=== PATIENT | male | born 1985 | race Caucasian/White ===

== ENCOUNTER 2021-09-24 02:13 | Outpatient (CLI) | payer MEDICAID, SELFPAY ==
--- NOTE | 2021-09-24 | DI.MRI_ITS ---
Exam(s) MR LUMBAR SPINE WO EXAM: MR LUMBAR SPINE WO CLINICAL HISTORY: LT HIP PAIN,LUMBAGO,SCIATICA,RADICULOPATHY,M54.16,M54.42. TECHNIQUE: Multiplanar multisequence MRI of the Lumbar spine was performed. COMPARISON: No exams were available for comparison FINDINGS: The examination is limited due to patient motion artifact. Bones: The last intervertebral disc space is designated the L5/S1 level for the numbering purpose of this examination. The vertebral body heights are well maintained. Alignment is satisfactory. The si gnal characteristics are unremarkable. Cord: The conus tip ends at the T12-L1 level. It is of normal size and signal intensity. T12-L1: No disc herniations or bulges are present. No central spinal canal or neural foraminal stenos is. L1-2: No disc herniations or bulges are present. No central spinal canal or neural foraminal stenosis . L2-3: No disc herniations or bulges are present. No central spinal canal or neural foraminal stenosis . L3-4: No disc herniations or bulges are present. No central spinal canal or neural foraminal stenosis . L4-5: There is a diffuse disc bulge and left lateral disc herniation. There is extrusion of the disc posterior to the L4 vertebral body. It causes left lateral recess stenosis and compresses the left L4 nerve root. There is no central spinal canal stenosis. There is moderately severe left neural fo raminal stenosis. No right neural foraminal stenosis. L5-S1: No disc herniations or bulges are present. No central spinal canal or neural foraminal stenosi s. Soft tissues: The visualized SI joints and sacrum are well maintained. The paraspinal soft tissues ar e unremarkable. Visualized abdominal organs: Unremarkable. IMPRESSION: There is a left paracentral disc herniation at L4-L5 with extrusion posterior to the L4 vertebral bod y. It causes left lateral recess stenosis and compresses the left L4 nerve root. DATA REPOSITORY:
--- NOTE | 2021-09-24 | DI.RAD_ITS ---
Exam(s) XR HIP LT COMPLETE AP PELVIS EXAM: XR HIP LT COMPLETE AP PELVIS CLINICAL HISTORY: LT HIP PAIN,LUMBAGO, RADICULOPATHY,M25.552. TECHNIQUE: 2D digital imaging was performed of the left hip. Two views were obtained. AP pelvis an d lateral left hip views were obtained. COMPARISON: No exams were available for comparison FINDINGS: BONES: No acute fracture is present. No bony destructive lesion is seen. JOINTS: No dislocation present. SOFT TISSUE: Normal. IMPRESSION: Unremarkable radiographs of the left hip. Unremarkable radiographs of the pelvis DATA REPOSITORY: RADIATION DOSE DELIVERED:
--- NOTE | 2021-09-24 14:50 | DI.RAD_ITS ---
Exam(s) XR EYE FOREIGN BODY EXAM: XR EYE FOREIGN BODY INDICATION: PRE MRI CLEARANCE, H/O METAL TO EYE. COMPARISON: No exams were available for comparison TECHNIQUE: 2D digital imaging was performed. FINDINGS: No radiopaque foreign bodies are seen in the orbits. IMPRESSION: DATA REPOSITORY: RADIATION DOSE DELIVERED:
== END 2021-09-24 02:33 ==
PROVIDERS: PCP Physician Assistant; Visit Provider Physician Assistant
DX: M25.552 Pain in left hip (principal); M51.16 Intervertebral disc disorders with radiculopathy, lumbar region; Z18.89 Other specified retained foreign body fragments
CPT/HCPCS: 70030; 72148; 73502

== ENCOUNTER 2021-09-29 18:06 | Outpatient (REF) | payer MEDICAID, SELFPAY ==
[2021-09-29 20:29] LABS: ESR 10 mm/hr (0-15)
[2021-09-29 21:28] LABS: C-Reactive Protein 0.15 mg/dL (0.0-0.3)
[2021-09-30 16:18] LABS: Rheumatoid Factor <8.6 IU/mL (<12.0)
[2021-10-01 10:18] LABS: Lyme Ab w Rflx to Lyme Confirm Negative (Negative)
[2021-10-01 10:59] LABS: Cyclic Citrullinated Peptide <2.5 U/mL (<5.0)
[2021-10-01 22:34] LABS: Anaplasma phagocytophilum Negative (Negative); B. miyamotoi PCR Negative (Negative); Babesia divergens/MO-1 Negative (Negative); Babesia duncani Negative (Negative); Babesia microti Negative (Negative); Ehrlichia chaffeensis Negative (Negative); Ehrlichia ewingii/canis Negative (Negative); Ehrlichia muris eauclairensis Negative (Negative)
== END 2021-09-29 18:07 | disposition home or self-care (01) ==
LOC: NCHCN 18:06
PROVIDERS: PCP Physician Assistant; Visit Provider Physician Assistant
DX: M25.59 Pain in other specified joint (principal)
CPT/HCPCS: 85652; 86200; 87798; 86140; 86431; 86618

== ENCOUNTER 2023-10-28 12:44 | Emergency (ER) | payer MEDICAID, SELFPAY ==
[2023-10-28 12:49] VITALS: BP 118/96; PULSE 99; RESP 15; TEMP 36.7; O2SAT 99
--- NOTE | 2023-10-28 13:17 | ED.GENADUL_ITS ---
Discharge Plan Disposition Patient Disposition: Home Condition: Improving Discharge Details Clinical Impression: Peritonsillar abscess Primary Care Provider: Richi Arciniega ED Provider: Calderon Beck Home Meds and New Rx's Prescriptions: New amoxicillin-pot clavulanate 875-125 mg tablet 1 tab PO BID 7 Days Qty: 14 0RF No Action buprenorphine-naloxone [Suboxone] 8-2 mg film 2 film sublingual DAILY Patient Comments: Reports taking another 2mg film if needed Rx Instructions: place 1 strip/tab under (each) side of tongue Discharge Instructions Instructions: Peritonsillar Abscess (ED) Additional Instructions: Please follow-up closely with your primary care physician. Return to the emergency department for any worsening symptoms. HPI General Date/Time Provider Initiated Documentation: 10/28/23 12:54 . HPI Narrative: 38-year-old male presents with painful sore throat over the last several days, felt spontaneous drainage of fluid on the back of his throat and a foul taste. Has been taking his friend's amoxicillin over the last 2 days. Related Data Home Medications Medication Instructions Recorded Confirmed amoxicillin 875 mg-potassium 1 tab PO BID 7 days #14 tabs 10/28/23 clavulanate 125 mg tablet buprenorphine 8 mg-naloxone 2 mg 2 film sublingual DAILY 10/28/23 10/28/23 sublingual film (Suboxone) Previous Rx's Medication Instructions Recorded amoxicillin 875 mg-potassium 1 tab PO BID 7 days #14 tabs 10/28/23 clavulanate 125 mg tablet Allergies Allergy/AdvReac Type Severity Reaction Status Date / Time No Known Allergies Allergy Unverified 10/28/23 12:54 General Stated Complaint: RashLesion SHANE: 3 Review of Systems Narrative: Review of Systems Constitutional: negative Eyes: negative ENT: Sore throat Cardiovascular: negative Respiratory: negative Gastrointestinal: negative : negative Musculoskeletal: negative Skin: negative Neurologic: negative Psych: negative Exam Narrative Exam Narrative: Physical Examination General: alert, awake, cooperative, resting comfortably, no acute distress HEENT: normocephalic, atraumatic; PERRL, EOM intact, conjunctiva normal; no nasal discharge; moist mucous membranes, peritonsillar edema right tonsil greater than left, midline uvula, tolerating secretions normal voice no stridor Neck: supple, trachea midline; full ROM Chest: normal to inspection Respiratory: normal respiratory effort, speaking in full sentences Skin: no lesions, rashes or trauma appreciated Neuro: AAOx3, normal speech, moving all extremities Course Vital Signs Vital signs: Vital Signs Temperature 36.7 C 10/28/23 12:49 Pulse 99 H 10/28/23 12:49 Respiratory Rate 15 10/28/23 12:49 Blood Pressure 118/96 H 10/28/23 12:49 Pulse Oximetry 99 10/28/23 12:49 Temperature 36.7 C 10/28/23 12:49 Temperature Source Temporal Artery Scan 10/28/23 12:49 Pulse 99 H 10/28/23 12:49 Respiratory Rate 15 10/28/23 12:49 Respiratory Effort Normal 10/28/23 12:53 Blood Pressure 118/96 H 10/28/23 12:49 Blood Pressure Position Sitting 10/28/23 12:49 Pulse Oximetry 99 10/28/23 12:49 Oxygen Delivery Method Room Air 10/28/23 12:49 Oxygen Flow Rate 0 10/28/23 12:49 Pain Level 5 10/28/23 12:49 Medical Decision Making 38-year-old male presents with sore throat over the last several days, foul tasting drainage on the back of his throat today, evidence of likely right peritonsillar abscess that is spontaneously draining, midline uvula tolerating secretions normal voice, afebrile nontoxic borderline tachycardic on arrival, patient has been taking a friend's amoxicillin over the last 2 days. No evidence of airway compromise, soft submandibular and submental space low suspicion for retropharyngeal abscess or Gerald's angina. Will administer antibiotics, anti-inflammatory analgesia fluids will obtain basic labs. Patient had great improvement of symptomatology after spontaneous rupture of peritonsillar abscess, at this time given resolution of symptoms and no evidence of airway compromise will hold further I&D. If patient continues to improve after antibiotics and anti-inflammatory consider home with close follow-up 14: 28 patient feeling much better resting comfortably no acute distress. No respiratory distress. Tolerating secretions normal voice. Will transition to Augmentin. Home care instructions and strict return precautions Quality:SDOH Health Related Social Needs: No Data to Display PFSH All Active Problems (Updated 10/28/23 @ 14:25 by Calderon Beck MD) Peritonsillar abscess (Acute) Social History Smoking/Tobacco Use Status: Current every day Tobacco Type: cigarettes Smoking risk assessment performed?: Yes Alcohol Intake: never Drug use: Never Substance use type: does not use
[2023-10-28] MEDS: Normal Saline 1,000 ML 1000 ML IV (13:28)
[2023-10-28] MEDS: AMPICILLIN/SULBACTAM 3 GM in Normal Saline 100 ML IVPB (13:29)
[2023-10-28] MEDS: Dexamethasone 10 MG/ML VIAL IVP (13:31)
[2023-10-28] MEDS: Ketorolac 15 MG/ML VIAL IVP (13:31)
[2023-10-28 13:42] LABS: Abs Immature Grans 0.03 10^3/uL (0.0-0.06); Absolute Basophil Count 0.04 10^3/uL (0.0-0.2); Absolute Eosinophil Count 0.14 10^3/uL (0.0-0.7); Absolute Lymphocyte Count 2.24 10^3/uL (1.2-3.4); Absolute Monocyte Count 0.98 10^3/uL (0.1-0.8); Absolute Neutrophil Count 5.64 10^3/uL (1.2-6.7); Basophils % 0.4; Eosinophils % 1.5; HCT 36.6 % (40.0-50.0); HGB 12.3 g/dL (13.5-17.5); Immature Grans % 0.3; Lymphocytes % 24.7; MCH 30.8 pg (27.0-33.0); MCHC 33.6 % (32.0-36.0); MCV 92 fL (80-95); MPV 8.8 fL (8.0-11.0); Monocytes % 10.8; Neutrophils % 62.3; Platelet Count 400 10^3/uL (130-400); RDW 12.3 % (11.8-14.1); RDW-SD 41.2 fL; WBC 9.07 10^3/uL (4.4-10.8)
[2023-10-28 14:15] LABS: ALT 13 U/L (16-63); AST 13 U/L (15-37); Albumin 3.5 g/dL (3.4-5.0); Alkaline Phosphatase 81 U/L (46-116); Anion Gap 8.5 mmol/L (3-11); BUN 15 mg/dL (7-18); Bilirubin, Total 0.3 mg/dL (0.2-1.0); CO2 30.5 mmol/L (21.0-32.0); CREATININE 0.8 mg/dL (0.70-1.30); Calcium 9.4 mg/dL (8.5-10.1); Chloride 104 mmol/L (98-107); Estimated GFR 114.74 (mL/min/1.73m2); Glucose 91 mg/dL (74-106); Potassium 3.8 mmol/L (3.5-5.1); Sodium 143 mmol/L (136-145); Total Protein 8.9 g/dL (6.4-8.2)
[2023-10-28 14:35] VITALS: BP 130/72; PULSE 82; RESP 20; TEMP 36.6; O2SAT 96
== END 2023-10-28 14:38 | disposition home or self-care (01) ==
PROVIDERS: Emergency Provider Emergency Medicine; PCP Physician Assistant
DX: R07.0 Pain in throat (principal); J36 Peritonsillar abscess
CPT/HCPCS: 80053; 96361; 96365; 96375; 99284; 85025; 99283; J0295; J1100; J1885